=== PATIENT | female | born 1995 | race Caucasian/White ===

== ENCOUNTER 2021-08-25 12:39 | Emergency (ER) | payer MEDICAID ==
[2021-08-25 13:25] LABS: BASOPHILS # (AUTO) 0.1 10^3/uL (0.0-0.1); BASOPHILS % (AUTO) 0.5 %; EOSINOPHILS # (AUTO) 0.1 10^3/uL (0.0-0.7); EOSINOPHILS % (AUTO) 0.3 %; HCT - HEMATOCRIT 39.9 % (37.0-47.0); HGB - HEMOGLOBIN 13.8 g/dL (12.0-16.0); LYMPHOCYTES # (AUTO) 3.3 10^3/uL (1.5-3.5); LYMPHOCYTES % (AUTO) 16.4 %; MEAN CORPUSCULAR HEMOGLOBIN 32.2 pg (27.0-31.0); MEAN CORPUSCULAR HGB CONC 34.6 g/dL (32.0-36.0); MEAN PLATELET VOLUME 9.9 fL (7.9-10.8); MONOCYTES # (AUTO) 1.2 10^3/uL (0.0-1.0); MONOCYTES % (AUTO) 5.8 %; NEUTROPHILS # (AUTO) 15.3 10^3/uL (1.5-6.6); NEUTROPHILS % (AUTO) 76.6 %; PLT - PLATELET COUNT 265 10^3/uL (130-450); RED BLOOD COUNT 4.29 10^6/uL (4.20-5.40); RED CELL DISTRIBUTION WIDTH 13.1 % (12.0-15.0)
[2021-08-25 13:35] LABS: ALBUMIN 5.1 g/dL (3.2-5.5); ALBUMIN/GLOBULIN RATIO 1.5 (1.0-2.2); BILIRUBIN,TOTAL 0.9 mg/dL (0.2-1.0); CALCIUM 10.4 mg/dL (8.5-10.3); CREATININE 0.6 mg/dL (0.4-1.0); POTASSIUM 3.2 mmol/L (3.5-5.0); TOTAL PROTEIN 8.6 g/dL (6.7-8.2)
[2021-08-25 14:17] LABS: BILIRUBIN,URINE NEGATIVE (NEGATIVE); GLUCOSE, URINE (UA) NEGATIVE (NEGATIVE); KETONES,URINE (UA) 40 mg/dL (NEGATIVE); LEUKOCYTE ESTERASE, URINE NEGATIVE (NEGATIVE); NITRITE,URINE NEGATIVE (NEGATIVE); OCCULT BLOOD,URINE NEGATIVE (NEGATIVE); PROTEIN,URINE NEGATIVE (NEGATIVE); UROBILINOGEN,URINE 0.2 (NORMAL) E.U./dL (NORMAL)
[2021-08-25 14:21] LABS: CLARITY,URINE HAZY (CLEAR); HCG UR QUAL POSITIVE
[2021-08-25 14:29] LABS: BACTERIA,URINE Moderate /HPF (None Seen); MUCUS,URINE Moderate Strands; RBC,URINE 0-5 /HPF (0-5); SQUAMOUS EPITHELIAL CELL,UR MANY Squamous (<= Few); WBC,URINE 0-3 /HPF (0-5)
[2021-08-25] MEDS ORDERED: METOCLOPRAMIDE 10 MG/2 ML VIAL IVP STA (15:09)
[2021-08-25] MEDS ORDERED: SODIUM CHLORIDE 0.9% 1,000 ML IV STA (15:09)
--- NOTE | 2021-08-25 15:10 | ED Physician Documentation ---
PD HPI FEMALE - Stated complaint Stated Complaint: NAUSEA - Chief complaint Chief Complaint: Abd Pain - History obtained from History obtained from: Patient - Additional information Additional information: 26-year-old woman presents with vomiting in . She is about a month and a half along and complains of severe vomiting. Really no abdominal pain. In the past she has had good luck with doxylamine as a prescription. No cramping or bleeding. No fluid loss. Review of Systems Constitutional: denies: Fever, Chills Eyes: reports: Reviewed and negative Ears: reports: Reviewed and negative Nose: reports: Reviewed and negative Throat: reports: Reviewed and negative PD PAST MEDICAL HISTORY - Present Medications Home Medications: Ambulatory Orders Medication Instructions Recorded Confirmed Doxylamine Succinate [Unisom] 25 mg PO Q6H PRN #20 tablet 08/25/21 - Allergies Allergies/Adverse Reactions: Allergies Allergy/AdvReac Type Severity Reaction Status Date / Time No Known Drug Allergies Allergy Verified 08/25/21 12:55 PD ED PE NORMAL - Vitals Vital signs reviewed: Yes - General General: Alert and oriented X 3, No acute distress - Abdomen Abdomen: Normal bowel sounds, Soft, Other (Nontender, bedside ultrasound shows single live intrauterine with a heart rate of about 160. Positive motion.) - Neuro Neuro: Alert and oriented X 3, Normal speech Results - Vitals Vitals: Vital Signs - 24 hr 08/25/21 08/25/21 08/25/21 12:55 15:01 16:37 Temperature 37.0 C 97.6 C H 36.9 C Heart Rate 62 79 99 Respiratory 18 14 19 Rate Blood Pressure 130/69 114/56 L 125/70 O2 Saturation 99 100 96 Oxygen O2 Source Room air - Labs Labs: Laboratory Tests 08/25/21 08/25/21 08/25/21 13:10 13:15 13:15 WBC 20.0 H RBC 4.29 Hgb 13.8 Hct 39.9 MCV 93.0 MCH 32.2 H MCHC 34.6 RDW 13.1 Plt Count 265 MPV 9.9 Neut # (Auto) 15.3 H Lymph # (Auto) 3.3 [place] # (Auto) 1.2 H Eos # (Auto) 0.1 Baso # (Auto) 0.1 Absolute Nucleated RBC 0.00 Nucleated RBC % 0.0 Sodium 134 L Potassium 3.2 L Chloride 97 L Carbon Dioxide 26 Anion Gap 11.0 BUN 10 Creatinine 0.6 Estimated GFR (MDRD) 120 Glucose 102 H Calcium 10.4 H Total Bilirubin 0.9 AST 20 ALT 15 Alkaline Phosphatase 59 Total Protein 8.6 H Albumin 5.1 Globulin 3.5 Albumin/Globulin Ratio 1.5 Lipase 25 Urine Color YELLOW Urine Clarity HAZY Urine pH 6.0 Ur Specific [place] 1.025 Urine Protein NEGATIVE Urine Glucose (UA) NEGATIVE Urine Ketones 40 H Urine Occult Blood NEGATIVE Urine Nitrite NEGATIVE Urine Bilirubin NEGATIVE Urine Urobilinogen 0.2 (NORMAL) Ur Leukocyte Esterase NEGATIVE Urine RBC 0-5 Urine WBC 0-3 Ur Squamous Epith Cells MANY Squamous H Urine Bacteria Moderate H Urine Mucus Moderate Strands Ur Microscopic Review INDICATED Urine Culture Comments NOT INDICATED Urine HCG, Qual POSITIVE PD MEDICAL DECISION MAKING - ED course ED course: 26-year-old woman with history of hyperemesis gravidarum presents with same, reassuring bedside ultrasound. After the administration of IV fluids and Reglan she passed a p.o. challenge and was comfortable with discharge. Has had good luck with doxylamine in the past and this is prescribed. Departure - Departure Disposition: 01 Home, Self Care Clinical Impression: Hyperemesis gravidarum Condition: Good Record reviewed to determine appropriate education?: Yes Instructions: ED Preg Morning Sickness Prescriptions: Doxylamine Succinate [Unisom] 25 mg PO Q6H PRN #20 tablet PRN Reason: Nausea / Vomiting Comments: Followup with your OB, return if worse. Discharge Date/Time: 08/25/21 16:40
[2021-08-25] MEDS ORDERED: POTASSIUM CHLORIDE 20 MEQ TABLET PO STA (15:13)
[2021-08-25 16:40] VITALS: BP 125/70
== END 2021-08-25 16:40 | disposition home or self-care (01) ==
LOC: ED 12:39
DX: O21.0 Mild hyperemesis gravidarum (principal); Z3A.01 Less than 8 weeks gestation of pregnancy
CPT/HCPCS: 36415; 80053; 81001; 81025; 83690; 85025; 96374; 99283; A9270; J2765; 81003; 87086

== ENCOUNTER 2021-09-11 16:41 | Outpatient (CLI) | payer MEDICAID ==
[2021-09-11 17:07] LABS: BASOPHILS # (AUTO) 0.1 10^3/uL (0.0-0.1); BASOPHILS % (AUTO) 0.6 %; EOSINOPHILS # (AUTO) 0.1 10^3/uL (0.0-0.7); EOSINOPHILS % (AUTO) 0.9 %; HCT - HEMATOCRIT 34.3 % (37.0-47.0); HGB - HEMOGLOBIN 11.9 g/dL (12.0-16.0); LYMPHOCYTES # (AUTO) 3.1 10^3/uL (1.5-3.5); LYMPHOCYTES % (AUTO) 22.6 %; MEAN CORPUSCULAR HEMOGLOBIN 33.2 pg (27.0-31.0); MEAN CORPUSCULAR HGB CONC 34.7 g/dL (32.0-36.0); MEAN CORPUSCULAR VOLUME 95.8 fL (81.0-99.0); MEAN PLATELET VOLUME 9.8 fL (7.9-10.8); MONOCYTES % (AUTO) 7.3 %; NEUTROPHILS # (AUTO) 9.4 10^3/uL (1.5-6.6); PLT - PLATELET COUNT 276 10^3/uL (130-450); RED BLOOD COUNT 3.58 10^6/uL (4.20-5.40); RED CELL DISTRIBUTION WIDTH 13.6 % (12.0-15.0); WHITE BLOOD COUNT 13.8 x10^3/uL (4.8-10.8)
[2021-09-11 17:18] LABS: BILIRUBIN,URINE NEGATIVE (NEGATIVE); GLUCOSE, URINE (UA) NEGATIVE (NEGATIVE); KETONES,URINE (UA) NEGATIVE (NEGATIVE); LEUKOCYTE ESTERASE, URINE NEGATIVE (NEGATIVE); NITRITE,URINE NEGATIVE (NEGATIVE); OCCULT BLOOD,URINE NEGATIVE (NEGATIVE); PROTEIN,URINE NEGATIVE (NEGATIVE); UROBILINOGEN,URINE 0.2 (NORMAL) E.U./dL (NORMAL)
[2021-09-11 17:21] LABS: CLARITY,URINE CLEAR (CLEAR)
[2021-09-11 17:40] LABS: BACTERIA,URINE None Seen /HPF (None Seen); RBC,URINE None Seen /HPF (0-5); SQUAMOUS EPITHELIAL CELL,UR FEW Squamous (<= Few); WBC,URINE 0-3 /HPF (0-5)
[2021-09-12 15:22] LABS: HIV AG/AB 4TH GEN NON-REACTIVE (NON-REACTIVE)
[2021-09-12 16:16] LABS: HEPATITIS C ANTIBODY NON-REACTIVE (NON-REACTIVE)
== END 2021-09-11 16:42 | disposition home or self-care (01) ==
LOC: LAB 16:41
PROVIDERS: ATTEND Obstetrics & Gynecology
DX: O09.90 Supervision of high risk pregnancy, unspecified, unspecified trimester (principal); Z36.89 Encounter for other specified antenatal screening
CPT/HCPCS: 36415; 81001; 85025; 86592; 86762; 86787; 86803; 86850; 86900; 86901; 87086; 87340; 87389

== ENCOUNTER 2022-01-15 20:25 | Outpatient (CLI) | payer MEDICAID ==
[2022-01-15 21:20] LABS: BASOPHILS # (AUTO) 0.1 10^3/uL (0.0-0.1); BASOPHILS % (AUTO) 0.7 %; EOSINOPHILS # (AUTO) 0.1 10^3/uL (0.0-0.7); EOSINOPHILS % (AUTO) 1.1 %; HCT - HEMATOCRIT 41.7 % (37.0-47.0); HGB - HEMOGLOBIN 14.3 g/dL (12.0-16.0); LYMPHOCYTES # (AUTO) 3.2 10^3/uL (1.5-3.5); LYMPHOCYTES % (AUTO) 33.8 %; MEAN CORPUSCULAR HEMOGLOBIN 32.3 pg (27.0-31.0); MEAN CORPUSCULAR HGB CONC 34.3 g/dL (32.0-36.0); MEAN CORPUSCULAR VOLUME 94.1 fL (81.0-99.0); MEAN PLATELET VOLUME 9.9 fL (7.9-10.8); MONOCYTES # (AUTO) 0.6 10^3/uL (0.0-1.0); MONOCYTES % (AUTO) 6.6 %; NEUTROPHILS # (AUTO) 5.5 10^3/uL (1.5-6.6); NEUTROPHILS % (AUTO) 57.6 %; PLT - PLATELET COUNT 284 10^3/uL (130-450); RED BLOOD COUNT 4.43 10^6/uL (4.20-5.40); RED CELL DISTRIBUTION WIDTH 11.9 % (12.0-15.0); WHITE BLOOD COUNT 9.6 x10^3/uL (4.8-10.8)
[2022-01-15 21:34] LABS: ALBUMIN 4.7 g/dL (3.2-5.5); ALBUMIN/GLOBULIN RATIO 1.3 (1.0-2.2); BILIRUBIN,TOTAL 0.9 mg/dL (0.2-1.0); CALCIUM 9.6 mg/dL (8.5-10.3); CREATININE 0.8 mg/dL (0.4-1.0); POTASSIUM 3.6 mmol/L (3.5-5.0); TOTAL PROTEIN 8.2 g/dL (6.7-8.2)
[2022-01-15 21:46] LABS: THYROID STIMULATING HORMONE 1.52 uIU/mL (0.34-5.60)
[2022-01-15 21:48] LABS: FREE T4 (FREE THYROXINE) 0.77 ng/dL (0.58-1.64)
[2022-01-15 21:49] LABS: FREE T3 3.49 pg/mL (2.5-3.9)
[2022-01-15 21:54] LABS: FERRITIN 24.6 ng/mL (11.0-306.8)
--- NOTE | 2022-01-16 08:48 | Ultrasound Report ---
PROCEDURE: Pelvic Complete INDICATIONS: IUD CHECK COMPARISON: None. TECHNIQUE: Transabdominal sonographic evaluation of the pelvis was performed. FINDINGS: UTERUS: Anteverted and measures 6.7 x 3.7 x 5.2 cm. An intrauterine device is seen in situ and appear s to be appropriate position. Predominantly homogeneous echotexture. RIGHT OVARY: 0.9 x 3.3 x 2.1 cm. Vol: 3.3 mL. Color-flow projects over the ovarian tissue. LEFT OVARY: 3.2 x 2.7 x 2.5 cm. Vol: 11.5 mL. Color-flow projects over the ovarian tissue. OTHER: None. IMPRESSION: 1.Intrauterine device in place. Reviewed by: Shekhar Preciado MD on 01/16/2022 8:47 AM PDT Approved by: Shekhar Preciado MD on 01/16/2022 8:47 AM PDT Station ID: [id number]
== END 2022-01-15 20:26 | disposition home or self-care (01) ==
LOC: DI 20:25
PROVIDERS: ATTEND Physician Assistant
DX: Z30.431 Encounter for routine checking of intrauterine contraceptive device (principal); Z13.9 Encounter for screening, unspecified; D64.9 Anemia, unspecified; R10.9 Unspecified abdominal pain; O03.9 Complete or unspecified spontaneous abortion without complication
CPT/HCPCS: 36415; 80050; 81599; 82607; 82728; 82746; 83516; 83540; 84439; 84466; 84481; 84702; 85613; 85730; 86146; 86147; 86900; 86901